=== PATIENT | male | born 1985 | race Caucasian/White ===

== ENCOUNTER 2017-01-13 05:23 | Emergency (ER) | payer SELFPAY ==
[~2017-01-13] VITALS: Ht 165.1 cm; Wt 100.0 kg
[2017-01-13 05:24] VITALS: BP 131/78; PULSE 128; RESP 16; TEMP 99.2; O2SAT 97
[2017-01-13] MEDS ORDERED: SODIUM CHLOR 0.9% 1000 ML INJ 1,000 ML IV SCH (05:42)
[2017-01-13 05:44] VITALS: RESP 20; O2SAT 96
[2017-01-13] MEDS ORDERED: diphenhydrAMINE HCL 50 MG/ML VIAL IVP ONE (05:45)
[2017-01-13] MEDS ORDERED: FAMOTIDINE 20 MG/2 ML VIAL IV PUSH ONE (05:45)
[2017-01-13] MEDS ORDERED: EPINEPHrine HCL (1:1000) 1 MG/ML VIAL IM ONE (05:45)
[2017-01-13] MEDS ORDERED: methylPREDNISolone SOD SUCC 125 MG/2 ML VIAL IVP ONE (05:45)
[2017-01-13] MEDS ORDERED: SODIUM CHLORIDE 0.9% FLUSH 10 ML FLUSH IV FLUSH PRN (05:45)
--- NOTE | 2017-01-13 05:50 | PD ---
HPI Chief Complaint: Allergic/Adverse Reaction Time Seen by Provider: 05:38 Travel History International Travel<30 days: No Contact w/Intl Traveler<30days: No Traveled to known affect area: No History of Present Illness HPI The patient is a 31-year-old male who presents to the emergency department for possible allergic reaction. The patient is a 3 to four-day history of pruritic rash on the chest wall, arms, and upper extremities. He also complains of mild edema to the upper and lower lips, mild throat swelling, without any shortness of breath, nausea, vomiting, or chest pain. The patient denies taking any chronic medications on a daily basis, did take Benadryl yesterday with mild alleviation of his symptoms. He denies ingestion of any recent new foods or history of similar symptoms in the past. He denies any audible wheezing, history of asthma, but does have a history of dry skin over the knees. The symptoms are moderate, slightly alleviated with Benadryl yesterday, but reoccurring. PFSH Past Medical History Narrative Medical Eczema Tetanus Vaccination: Unknown Past Surgical History Narrative Surgical Noncontributory Social History Alcohol Use: No Tobacco Use: No Substance Use: No Allergies-Medications (Allergen,Severity, Reaction): Coded Allergies: No Known Allergies (Unverified , 01/13/17) Reported Meds & Prescriptions Reported Meds & Active Scripts Active Epipen 2-Mejia Inj (Epinephrine) 0.3 Mg/0.3 Ml Pfpen 0.3 Mg IM ONCE PRN Diphenhydramine (Diphenhydramine HCl) 25 Mg Cap 25 Mg PO Q6H PRN Zantac (Ranitidine HCl) 150 Mg Tab 150 Mg PO BID 4 Days Deltasone (Prednisone) 20 Mg Tab 40 Mg PO DAILY 4 Days Review of Systems Except as stated in HPI: all other systems reviewed are Neg General / Constitutional: No: Fever HENT: Positive: Other Cardiovascular: No: Chest Pain or Discomfort Respiratory: No: Shortness of Breath Gastrointestinal: No: Nausea, Vomiting Skin: Positive Rash, Positive Itching Physical Exam Narrative GENERAL: Awake, alert, pleasant 31-year-old male who appears his stated age and is in no acute respiratory distress. SKIN: Focused skin assessment warm/dry. Patient has urticaria on the upper and lower extremities as well as over the thorax which are blanching. HEAD: Atraumatic. Normocephalic. EYES: Pupils equal and round. No scleral icterus. No injection or drainage. ENT: No nasal bleeding or discharge. Mild edema of the upper and lower lip as well as the uvula. NECK: Trachea midline. No JVD. CARDIOVASCULAR: Regular, tachycardic with a heart rate of 130. RESPIRATORY: No accessory muscle use. Clear to auscultation. Breath sounds equal bilaterally. No audible wheezing. GASTROINTESTINAL: Abdomen soft, non-tender, nondistended. MUSCULOSKELETAL: No obvious deformities. No clubbing. No cyanosis. No edema. NEUROLOGICAL: Awake and alert. No obvious cranial nerve deficits. Motor grossly within normal limits. Normal speech. PSYCHIATRIC: Appropriate mood and affect; insight and judgment normal. Data Data Last Documented VS Vital Signs Date Time Temp Pulse Resp B/P (MAP) Pulse Ox O2 Delivery O2 Flow Rate FiO2 01/13/17 09:29 97 16 125/75 (92) 98 01/13/17 07:10 Room Air 01/13/17 05:24 99.2 Orders Orders Ecg Monitoring (01/13/17 05:42) Iv Access Insert/Monitor (01/13/17 05:42) Oximetry (01/13/17 05:42) Diphenhydramine Inj (Benadryl Inj) (01/13/17 05:45) Methylprednisolone So Succ Inj (Solumedr (01/13/17 05:45) Famotidine Inj (Pepcid Inj) (01/13/17 05:45) Sodium Chlor 0.9% 1000 Ml Inj (Ns 1000 M (01/13/17 05:42) Sodium Chloride 0.9% Flush (Ns Flush) (01/13/17 05:45) Epinephrine (1:1000) Inj (Adrenalin (1:1 (01/13/17 05:45) MDM Medical Decision Making Medical Screen Exam Complete: Yes Emergency Medical Condition: Yes Medical Record Reviewed: Yes Differential Diagnosis Differential diagnosis includes urticaria, anaphylaxis, allergic reaction, medication side effect. Narrative Course IV was established, the patient was placed on cardiac telemetry monitoring and continuous pulse oximetry monitoring. The patient has mild throat discomfort, angioedema of the lips, and urticaria, therefore, the patient was administered epinephrine 0.3 mg intramuscularly. The patient also received Solu-Medrol 125 mg intravenously, Benadryl 25 mg intravenously, and Pepcid 20 mg intravenously with 1 L of normal saline. The patient was then monitored in the emergency department for alleviation of his symptoms. If the patient is stable and his symptoms have resolved at 9:30 AM, the patient be discharged home on medications. Sepsis Criteria SIRS Criteria (2 or more): Heart rate over 90 Diagnosis Primary Impression: Anaphylaxis Qualified Codes: T78.2XXA - Anaphylactic shock, unspecified, initial encounter Patient Instructions: General Instructions Additional Instructions: Medications as directed. Follow-up with your primary physician. Return if symptoms worsen or progress. Med/Other Pt SpecificInfo: Prescription(s) given Scripts Epinephrine Inj (Epipen 2-Mejia Inj) 0.3 Mg/0.3 Ml Pfpen 0.3 MG IM ONCE Y for ALLERGIC REACTION, #1 PACK 0 Refills Prov: Nathanael Austin MD 01/13/17 Diphenhydramine (Diphenhydramine) 25 Mg Cap 25 MG PO Q6H Y for ALLERGIES, #20 CAP 0 Refills Prov: Nathanael Austin MD 01/13/17 Ranitidine (Zantac) 150 Mg Tab 150 MG PO BID for Reduce Stomach Acid for 4 Days, TAB 0 Refills Prov: Nathanael Austin MD 01/13/17 Prednisone (Deltasone) 20 Mg Tab 40 MG PO DAILY for 4 Days, TAB 0 Refills Prov: Nathanael Austin MD 01/13/17 Disposition: 01 DISCHARGE HOME Condition: Stable Nathanael Austin MD Jan 13, 2017 05:50
[2017-01-13 05:54] VITALS: BP 131/71; PULSE 117; RESP 18; O2SAT 97
[2017-01-13] MEDS ORDERED: DIPH25CA PO (05:55)
[2017-01-13] MEDS ORDERED: EPIP0.3I IM (05:55)
[2017-01-13] MEDS ORDERED: ZANT150T2 PO (05:55)
[2017-01-13] MEDS ORDERED: PRED-503 PO (05:55)
[2017-01-13 07:10] VITALS: BP 121/79; PULSE 90; RESP 17; O2SAT 99
[2017-01-13 09:29] VITALS: BP 125/75
== END 2017-01-13 09:31 | disposition home or self-care (01) ==
LOC: NEPE 05:23
DX: T78.2XXA Anaphylactic shock, unspecified, initial encounter (principal)
CPT/HCPCS: 96361; 96372; 96374; 96375; 99284; J0171; J1200; J2930; J7030